=== PATIENT | male | born 1960 | race Caucasian/White ===

== ENCOUNTER 2018-10-28 00:57 | Emergency (ER) | payer MEDICAID ==
[~2018-10-28] VITALS: Ht 182.9 cm; Wt 83.5 kg
[2018-10-28] MEDS ORDERED: OMEPRAZOLE 20 M20 M1 PO (01:19)
[2018-10-28] MEDS ORDERED: SIMVASTATIN20 MG PO (01:21)
[2018-10-28] MEDS ORDERED: FLOMAX0.4 MG PO (01:21)
[2018-10-28] MEDS ORDERED: ASPIR 8181 MG PO (01:21)
[2018-10-28] MEDS ORDERED: DULOXETINE HCL20 MG PO (01:21)
[2018-10-28] MEDS ORDERED: MOBIC15 MG PO (01:22)
[2018-10-28 01:26] LABS: URINE BILIRUBIN NEGATIVE (Negative); URINE BLOOD TRACE (Negative); URINE CLARITY CLEAR; URINE COLOR STRAW; URINE GLUCOSE-RANDOM NEGATIVE (Negative); URINE KETONES NEGATIVE (Negative); URINE LEUKOCYTES-REFLEX NEGATIVE (Negative); URINE NITRITE-REFLEX NEGATIVE (Negative); URINE PROTEIN NEGATIVE (Negative); URINE SPECIFIC GRAVITY <= 1.005 (1.005-1.030); URINE UROBILINOGEN 0.2 E.U./dl (0.2-1.0)
[2018-10-28 01:34] LABS: AMP/METHAMP Negative (Negative); BARBITURATES Negative (Negative); BENZODIAZEPINES Negative (Negative); COCAINE Negative (Negative); METHADONE Negative (Negative); OPIATES Negative (Negative); PCP Negative (Negative); THC Negative (Negative)
[2018-10-28 01:43] LABS: ABSOLUTE BASOPHILS 0.1 thou/uL (0.0-0.2); ABSOLUTE EOSINOPHILS 0.1 thou/uL (0.0-0.7); ABSOLUTE LYMPHOCYTES 2.2 thou/uL (0.8-5.3); ABSOLUTE MONOCYTES 0.5 thou/uL (0.0-1.2); BASOPHILS 1.1 %; EOSINOPHILS 2.1 %; HEMATOCRIT 38.6 % (42.0-52.0); HEMOGLOBIN 13.1 gm/dL (14.0-18.0); LYMPHOCYTES 46.4 %; MCH 33.7 pg (26.0-34.0); MCV 99.2 fL (80.0-100.0); MONOCYTES 9.4 %; MPV 7.6 fl. (7.2-11.1); NUCLEATED RBCS 0 /100WBC; PLATELET COUNT* 199 thou/uL (150-400); RBC 3.89 mil/uL (4.50-6.00); RDW-CV 13.7 % (10.5-14.5); WBC 4.8 thou/uL (4.0-11.0)
[2018-10-28 01:51] LABS: CREATININE 0.8 mg/dL (0.6-1.3); POTASSIUM 3.5 mmol/L (3.5-5.1)
[2018-10-28 01:56] LABS: ALBUMIN 3.4 g/dL (3.4-5.0); TOTAL BILIRUBIN 0.1 mg/dL (<0.1-1.0); TOTAL PROTEIN 7.4 g/dL (6.4-8.2)
[2018-10-28 02:32] LABS: ALCOHOL 191 mg/dL (<10); SALICYLATE 3.6 mg/dL (2.8-20.0)
[2018-10-28 02:36] LABS: ACETAMINOPHEN < 2 ug/mL (10-30)
[2018-10-28 05:02] VITALS: BP 111/58
== END 2018-10-28 05:03 | disposition home or self-care (01) ==
LOC: M.ERS 00:57
PROVIDERS: Emergency Medicine
DX: F10.129 Alcohol abuse with intoxication, unspecified (principal); R45.851 Suicidal ideations; M19.90 Unspecified osteoarthritis, unspecified site; I10 Essential (primary) hypertension; F31.9 Bipolar disorder, unspecified; F41.9 Anxiety disorder, unspecified; J44.9 Chronic obstructive pulmonary disease, unspecified; J45.909 Unspecified asthma, uncomplicated; F17.210 Nicotine dependence, cigarettes, uncomplicated; Y90.6 Blood alcohol level of 120-199 mg/100 ml

== ENCOUNTER 2019-03-10 01:10 | Emergency (ER) | payer MEDICAID ==
[~2019-03-10] VITALS: Ht 182.9 cm; Wt 73.5 kg
[~2019-03-10 01:10] MED LIST: ASPIR 8181 MG PO; DULOXETINE HCL20 MG PO; FLOMAX0.4 MG PO; MOBIC15 MG PO; OMEPRAZOLE 20 M20 M1 PO; SIMVASTATIN20 MG PO
[2019-03-10] MEDS ORDERED: REQUIP XL2 MG PO (01:20)
[2019-03-10] MEDS ORDERED: DULOXETINE HCL60 MG PO (01:21)
[2019-03-10] MEDS ORDERED: DULCOLAX STOOL100 M1 PO (01:21)
[2019-03-10] MEDS ORDERED: NEURONTIN100 MG PO (01:22)
[2019-03-10 01:56] LABS: ABSOLUTE LYMPHOCYTES 1.8 thou/uL (0.8-5.3); ABSOLUTE MONOCYTES 0.4 thou/uL (0.0-1.2); ABSOLUTE NEUTROPHILS 3.2 thou/uL (1.6-8.1); BASOPHILS 0.4 %; EOSINOPHILS 0.6 %; HEMATOCRIT 33.8 % (42.0-52.0); HEMOGLOBIN 11.6 gm/dL (14.0-18.0); LYMPHOCYTES 33.3 %; MCH 32.6 pg (26.0-34.0); MCHC 34.3 g/dL (28.0-37.0); MCV 95.2 fL (80.0-100.0); MONOCYTES 7.9 %; MPV 8.1 fl. (7.2-11.1); NUCLEATED RBCS 0 /100WBC; PLATELET COUNT* 250 thou/uL (150-400); POLYS 57.8 %; RBC 3.55 mil/uL (4.50-6.00); RDW-CV 17.2 % (10.5-14.5); WBC 5.5 thou/uL (4.0-11.0)
[2019-03-10 02:31] LABS: CALCIUM 8.4 mg/dL (8.5-10.1)
[2019-03-10 02:44] LABS: TOTAL BILIRUBIN 0.2 mg/dL (<0.1-1.0); TOTAL PROTEIN 6.6 g/dL (6.4-8.2)
[2019-03-10 04:35] VITALS: BP 122/81
--- NOTE | 2019-03-10 13:42 | EKG ---
[place] [address] ELECTROCARDIOGRAM REPORT Name: LUDA AVALOS [id number] Admission: 03/10/19 Attend Phys: Discharge: 03/10/19 Date of : 56 Report #: [id number] THIS REPORT FOR: //name// [facility] ED Test Date: 2019-03-10 Test Time: 01:10:45 Pat Name: LUDA AVALOS Department: Room: Gender: M Faculty Head: [place] : [id number] Requested By: Parveen Cheung Order Number: [id number] MD: Raciel Broderick Measurements Intervals [place] Rate: 104 P: 49 [place]: 138 QRS: -46 QRSD: 101 T: 56 QT: 327 QTc: 430 Interpretive Statements Sinus tachycardia Abnormal R-wave progression, early transition Inferior infarct, old No previous ECG available for comparison Electronically Signed On 03-10-2019 13:41:53 INTERMISSION COORDINATOR by Raciel Broderick [email or web address] <ELECTRONICALLY SIGNED> By: Raciel Broderick MD, MERGED WITH [facility] 03/10/19 1341 0110 0110 Raciel Broderick MD, FACC /EPI
== END 2019-03-10 04:35 | disposition home or self-care (01) ==
LOC: M.ERS 01:10
PROVIDERS: Emergency Medicine
DX: R07.89 Other chest pain (principal); M19.90 Unspecified osteoarthritis, unspecified site; I10 Essential (primary) hypertension; J44.9 Chronic obstructive pulmonary disease, unspecified; F17.210 Nicotine dependence, cigarettes, uncomplicated

== ENCOUNTER 2019-06-30 03:48 | Emergency (ER) | payer MEDICAID ==
[~2019-06-30] VITALS: Ht 182.9 cm; Wt 82.6 kg
[~2019-06-30 03:48] MED LIST changes: +DULCOLAX STOOL100 M1 PO; +DULOXETINE HCL60 MG PO; +NEURONTIN100 MG PO; +REQUIP XL2 MG PO
[2019-06-30] MEDS ORDERED: SINGULAIR 10 MG10 M1 PO (03:56)
[2019-06-30 04:25] LABS: HEMATOCRIT 37.2 % (42.0-52.0); HEMOGLOBIN 12.9 gm/dL (14.0-18.0); MCH 33.4 pg (26.0-34.0); MCHC 34.8 g/dL (28.0-37.0); MCV 96.2 fL (80.0-100.0); MPV 7.8 fl. (7.2-11.1); NUCLEATED RBCS 0 /100WBC; PLATELET COUNT* 204 thou/uL (150-400); RBC 3.86 mil/uL (4.50-6.00); WBC 4.7 thou/uL (4.0-11.0)
[2019-06-30 04:35] LABS: CALCIUM 8.7 mg/dL (8.5-10.1); CREATININE 0.9 mg/dL (0.6-1.3); POTASSIUM 4.1 mmol/L (3.5-5.1)
[2019-06-30 04:39] LABS: ALBUMIN 3.5 g/dL (3.4-5.0); TOTAL BILIRUBIN 0.2 mg/dL (<0.1-1.0); TOTAL PROTEIN 7.1 g/dL (6.4-8.2)
[2019-06-30 04:45] LABS: ALCOHOL 124 mg/dL (<10); SALICYLATE 3.1 mg/dL (2.8-20.0)
[2019-06-30 04:48] LABS: ACETAMINOPHEN < 2 ug/mL (10-30)
[2019-06-30 05:36] LABS: ABSOLUTE LYMPHOCYTES 2.4 thou/uL (0.8-5.3); ABSOLUTE MONOCYTES 0.1 thou/uL (0.0-1.2); ABSOLUTE NEUTROPHILS 2.2 thou/uL (1.6-8.1)
[2019-06-30 05:37] LABS: PLATELET ESTIMATE ADEQUATE
[2019-06-30 05:38] LABS: ANISOCYTOSIS 1+; OVALOCYTES 1+; POIKILOCYTOSIS 1+
[2019-06-30 05:54] LABS: URINE BILIRUBIN NEGATIVE (Negative); URINE BLOOD NEGATIVE (Negative); URINE CLARITY CLEAR; URINE COLOR YELLOW; URINE GLUCOSE-RANDOM NEGATIVE (Negative); URINE KETONES NEGATIVE (Negative); URINE LEUKOCYTES-REFLEX NEGATIVE (Negative); URINE NITRITE-REFLEX NEGATIVE (Negative); URINE PROTEIN NEGATIVE (Negative); URINE UROBILINOGEN 0.2 E.U./dl (0.2-1.0)
[2019-06-30 06:21] LABS: BENZODIAZEPINES Negative (Negative); COCAINE Negative (Negative); METHADONE Negative (Negative); OPIATES Negative (Negative); PCP Negative (Negative); THC Negative (Negative)
[2019-06-30 06:30] LABS: AMP/METHAMP Negative (Negative); BARBITURATES Negative (Negative)
[2019-06-30 10:45] VITALS: BP 139/84
[2019-07-01] MEDS ORDERED: LIPITOR10 MG PO (11:46)
[2019-07-01] MEDS ORDERED: COZAAR 50 MG TA50 M1 PO (11:47)
[2019-07-01] MEDS ORDERED: SEROQUEL 50 MG50 MG PO (11:48)
[2019-07-01] MEDS ORDERED: OMERA CAPSULE1 EACH PO (11:50)
== END 2019-06-30 10:45 ==
LOC: M.ERS 03:48
PROVIDERS: Family Medicine
DX: R45.851 Suicidal ideations (principal); F10.129 Alcohol abuse with intoxication, unspecified; Y90.6 Blood alcohol level of 120-199 mg/100 ml; J44.9 Chronic obstructive pulmonary disease, unspecified; I10 Essential (primary) hypertension; M19.90 Unspecified osteoarthritis, unspecified site; F41.9 Anxiety disorder, unspecified; F31.9 Bipolar disorder, unspecified; F17.210 Nicotine dependence, cigarettes, uncomplicated; Z79.899 Other long term (current) drug therapy